=== PATIENT | male | born 1995 | race Caucasian/White ===

== ENCOUNTER 2024-10-18 04:00 | Emergency (ER) | payer OTHER ==
[~2024-10-18] VITALS: Ht 190.5 cm; Wt 77.3 kg
[2024-10-18 04:05] VITALS: TEMP 98
[2024-10-18 05:36] VITALS: BP 131/80; PULSE 86; RESP 18; O2SAT 95
[2024-10-18] MEDS: IBUPROFEN 400 MG TABLET PO ONE (06:55)
[2024-10-18] MEDS: ACETAMINOPHEN 325 MG TABLET PO ONE (06:56)
[2024-10-18] MEDS: LIDOCAINE 5% TRANSDERMAL PATCH TD ONE (06:56)
== END 2024-10-18 07:34 | disposition home or self-care (01) ==
LOC: EMS 04:02
DX: S10.83XA Contusion of other specified part of neck, initial encounter (principal); S40.012A Contusion of left shoulder, initial encounter; M54.2 Cervicalgia; F17.210 Nicotine dependence, cigarettes, uncomplicated; Y04.8XXA Assault by other bodily force, initial encounter; Y93.89 Activity, other specified; Y92.89 Other specified places as the place of occurrence of the external cause; Y99.8 Other external cause status
CPT/HCPCS: 71045; 72050; 99284